=== PATIENT | male | born 1955 | race Hispanic/Latino ===

== ENCOUNTER 2016-06-09 17:31 | Emergency (ER) | payer OTHER ==
[2016-06-09 18:20] LABS: #Eosinphils 0.1 thou/uL (0.0-0.7); #Monocytes 0.5 thou/uL (0.11-0.59); #Neutrophils 2.6 thou/uL (1.40-6.50); %Basophils 0.8 % (0.0-1.0); %Eosinophils 1.9 % (0.0-10.0); %Lymphocytes 24.1 % (21.0-51.0); %Monocytes 11.3 % (0.0-10.0); Hematocrit 32.1 % (42.0-52.0); Mean Platelet Volume 7.3 fL (7.4-10.4); Red Blood Cell (RBC) Count 3.27 mill/uL (4.70-6.10); White Blood Cell (WBC) Count 4.2 thou/uL (4.8-10.8)
[2016-06-09 18:29] LABS: Lactic Acid - Sepsis 1.1 mmol/L (0.5-2.2)
[2016-06-09 18:34] LABS: ALT (SGPT) Less than 6 U/L (0-55); AST (SGOT) 22 U/L (5-34); Alkaline Phosphatase 47 U/L (40-150); Anion Gap 13 mmol/L (10-20); BUN (Urea Nitrogen) 20 mg/dL (8.4-25.7); Bilirubin, Total 0.4 mg/dL (0.2-1.2); Calc. Creatinine Clearance 0 mL/min (70-130); Calcium 8.4 mg/dL (7.8-10.44); Carbon Dioxide 27 mmol/L (22-29); Chloride 106 mmol/L (98-107); Estimated GFR-MDRD Greater than 90; Globulin 2.5 g/dL (2.4-3.5); Protein, Total 6.2 g/dL (6.0-8.3)
[2016-06-09] MEDS ORDERED: Sodium Chloride 0.9% 1,000 ML ONE (18:36)
[2016-06-09 18:47] LABS: Troponin I Less than 0.010 ng/mL (< 0.028)
[2016-06-09] MEDS ORDERED: Adacel (T-DAP) 0.5 ML VIAL ONE (19:16)
[2016-06-09 19:29] LABS: Bilirubin Negative (Negative); Blood, Urine Negative (Negative); Glucose, Urine (Dipstick) 100 mg/dL (Negative); Ketone, Urine 15 mg/dL (Negative); Nitrite Negative (Negative); Protein, Urine (Dipstick) Trace mg/dL (Neg-Trace)
--- NOTE | 2016-06-09 23:58 | PICIS ---
[facility] EMERGENCY RECORD ADMIN MERGE: Call In WedJun 09, 2016 17:08. (17:38 EPIE) TRIAGE (WedJun 09, 2016 17:34 JPAR) TRIAGE NOTES: trip and fall, small 1.5cm above R eye. (WedJun 09, 2016 17:34 JPAR) PATIENT: NAME: Kathy Villagomez, AGE: 60, GENDER: male, : Sat 1955, TIME OF GREET: WedJun 09, 2016 17:32, PREFERRED LANGUAGE: Luxembourgish, ETHNICITY: or , ECODE BILLING MAP: [facility], SSN: [id number], Zip Code: [address], KG WEIGHT: 57.61, PHONE: , , , PERSON ID: [id number], PCP: Charlene HARRIS LUKE. (WedJun 09, 2016 17:34 JPAR) COMPLAINT: FALL. (WedJun 09, 2016 17:34 JPAR) ADMISSION: URGENCY: 4 Non Urgent, ADMISSION SOURCE: Group Home, TRANSPORT: AMBULANCE - [facility], BED: TRIAGE. (WedJun 09, 2016 17:34 JPAR) ASSESSMENT: Assessment: trip and fell into chair at [place], small lac above R eye, Symptoms began 1 hour, Symptoms began 1 hour ago. (17:50 JPAR) PAIN: Patient complains of pain described as, aching, on a scale 0-10 patient rates pain as 3. (17:50 JPAR) SIRS SCORING: Heart Rate 55-109 (0), Temp range 96.8-101.1 (0), respiratory rate 12-24 (0), Mental Status altered: no (0), Infection or Suspected Infection: No. (17:50 JPAR) TRIAGE SCREENING: Patient denies suicidal ideation, Patient denies presence of domestic violence. (17:50 JPAR) PROVIDERS: TRIAGE NURSE: Crow Krishnan RN. (WedJun 09, 2016 17:34 JPAR) VITAL SIGNS: BP 92/57, Pulse 77, Resp 16, Temp 98.6, (Oral), Pain 3, O2 Sat 100, Time 06/09/2016 17:32. (17:32 JPAR) KNOWN ALLERGIES No Known Drug Allergies CURRENT MEDICATIONS Tylenol Ex Str Arthritis Pain: TABLET : Strength - 500 mg : ORAL Patient Dose: 1 tab(s) Oral. (17:37 JPAR) ibuprofen: TABLET : Strength - 400 mg : ORAL Patient Dose: 1 tab(s) Oral. (17:38 JPAR) Mylanta: TABLET, CHEWABLE : Strength - 200 mg-200 mg-20 mg : ORAL Patient Dose: 30 mL Oral. (17:39 JPAR) Milk of Magnesia: SUSPENSION, ORAL (FINAL DOSE FORM) : Strength - 400 mg/5 mL : ORAL Patient Dose: 30 mL Oral. (17:39 JPAR) Haldol: SYRINGE (ML) : Strength - 5 mg/mL : INJECTION &a-1R&a+25V*p+0X*o7298I*c152B*c15G*c2P*p-0X&a-25V&a+1RName: Kathy Villagomez : 1955 M60 MedRec: [id number] AcctNum: [id number] Prepared: WedJun 10, 2016 00:53 by Interface Page 1 of 13 pMD [facility] EMERGENCY RECORD Patient Dose: 6 mg Intramuscular every 6 hours PRN. (17:40 JPAR) LORazepam: TABLET : Strength - 0.5 mg : ORAL Patient Dose: 1 tab(s) Oral every 6 hours PRN. (17:41 JPAR) Cogentin: TABLET : Strength - 0.5 mg : ORAL Patient Dose: 1 tab(s) Oral once a day. (17:41 JPAR) CeleXA: TABLET : Strength - 40 mg : ORAL Patient Dose: 1 tab(s) Oral once a day. (17:42 JPAR) Depakote: TABLET, DELAYED RELEASE (ENTERIC COATED) : Strength - 500 mg : ORAL Patient Dose: 1 tab(s) Oral 2 times a day. (17:42 JPAR) Comtan: TABLET : Strength - 200 mg : ORAL Patient Dose: 1 tab(s) Oral. (17:43 JPAR) L-Dopa: POWDER (GRAM) : MISCELLANEOUS Patient Dose: 100 mg Oral. (17:44 JPAR) levothyroxine: TABLET : Strength - 25 mcg : ORAL Patient Dose: 1 tab(s) Oral once a day. (17:45 JPAR) Protonix: TABLET, DELAYED RELEASE (ENTERIC COATED) : Strength - 40 mg : ORAL Patient Dose: 1 tab(s) Oral once a day. (17:45 JPAR) Exelon: PATCH, TRANSDERMAL 24 HOURS : Strength - 4.6 mg/24 hour : TRANSDERMAL Patient Dose: 1 harlan Transdermal once a day. (17:47 JPAR) VITAL SIGNS VITAL SIGNS: BP: 92/57, Pulse: 77, Resp: 16, Temp: 98.6 (Oral), Pain: 3, O2 sat: 100, Time: 06/09/2016 17:32. (17:32 JPAR) BP: 104/54, Pulse: 92, Resp: 18, Temp: 98.1 (Oral), Pain: 0, O2 sat: 98 on Room Air, Time: 06/09/2016 19:13. (19:13 JPAR) BP: 108/62, Pulse: 84, Resp: 16, Pain: 0, O2 sat: 100 on Room Air, Time: 06/09/2016 19:43. (19:43 MSMI) BP: 115/72, Pulse: 65, Resp: 18, Temp: 98.9 (Oral), Pain: 0, O2 sat: 99 on Room Air, Time: 06/09/2016 20:04. (20:04 MSMI) BP: 116/69, Pulse: 61, Resp: 16, Temp: 97.9 (Oral), Pain: 0, O2 sat: 100 on Room Air, Time: 06/09/2016 22:18. (22:18 MSMI) NURSING ASSESSMENT: CARDIOVASCULAR (19:39 MSMI) CONSTITUTIONAL: Patient complains of S/p Fall, Bedside report given by KRISTIN Maria. KRISTIN Maria reports patient has fallen in the past day twice. Approx. 1.5 cm laceration to right side of forehead repaired with [place]-hernandez. patient is A&Ox3 -baseline unknown - patient has a history of Parkinson's. patient continues to get up out of bed, patient is instructed to stay in bed and use call light for assistance. PAIN: Patient rates pain as 0 out of 10. &a-1R&a+25V*p+0X*p5170K*c152B*c15G*c2P*p-0X&a-25V&a+1RName: Kathy Villagomez : 1955 M60 MedRec: [id number] AcctNum: [id number] Prepared: WedJun 10, 2016 00:53 by Interface Page 2 of 13 D [facility] EMERGENCY RECORD CARDIOVASCULAR: Cardiovascular assessment findings include heart rate normal, Heart rhythm normal sinus, Heart sounds normal, S1, S2, Left radial pulse +3(easily palpated, considered normal), Right radial pulse +3(easily palpated, considered normal), Left dorsalis pedis pulse +3(easily palpated, considered normal), Right dorsalis pedis pulse +3(easily palpated, considered normal), No associated diaphoresis, no associated dyspnea, no associated dizziness, no associated edema, no associated palpitations, no associated paresthesias, no associated weakness, No history of pulmonary embolism, No history of DVT or leg swelling. RESPIRATORY/CHEST: Chest movement symmetrical, no signs of distress, no retractions noted, no cyanosis, no jugular vein distension, no tenderness to palpation, no associated cough noted, Associated with fever, group home reports history of fever, patient is afebrile upon admission to ED., no associated fume exposure. SAFETY: Side rails up, Cart/Stretcher in lowest position, Call light within reach, Hospital ID band on. NURSING ASSESSMENT: SKIN (17:34 JPAR) CONSTITUTIONAL: Patient arrives, via stretcher, via [facility], Unsteady gait, Assistance to cart, Lift to cart, Inability to ambulate, History obtained from, Emergency Medical Services, group home record, Patient appears, restless, Patient cooperative, Patient alert, Oriented to person, place and time, Skin warm, Skin dry, Skin normal in color, Mucous membranes pink, Mucous membranes moist, Patient complains of Fall hit head on chair. PAIN: aching pain. SKIN: Skin assessment findings include skin warm, Skin dry, Skin normal in color. SAFETY: Side rails up, Cart/Stretcher in lowest position, Family at bedside, Call light within reach, Hospital ID band on. NURSING PROCEDURE: COMMUNICATIONS COMMUNICATIONS: residential, contacted at 23:30, Contacted to call report for transfer back to facility, At this time, I have made contact with KRISTIN Lopez. KRISTIN Lopez contacts [facility], states ambulance is in route unable to provide ETA. This nurse obtains [facility] number at this time., Notes: please see nursing notes for additional documentation in regards to communication with group home. (23:33 MSMI) Ambulance service, contacted at 11:36, Name of provider [facility], Person contacted Dispatcher, requested for transfer back to group home, by basic life support transport, Estimated time of arrival 10. (23:38 MSMI) SAFETY: Side rails up, Cart/Stretcher in lowest position, Call light within reach, Hospital ID band on. (23:38 MSMI) NURSING PROCEDURE: DISCHARGE NOTE (23:50 MSMI) DISCHARGE: Patient discharged to home, ambulating without &a-1R&a+25V*p+0X*a3641V*c152B*c15G*c2P*p-0X&a-25V&a+1RName: HernandoKathy : 1955 M60 MedRec: [id number] AcctNum: [id number] Prepared: WedJun 10, 2016 00:53 by Interface Page 3 of 13 D [facility] EMERGENCY RECORD assistance, transported via non-urgent ambulance, accompanied by emergency medical services personnel, Discharge instructions given to patient, Discharge instructions given to EMS staff, Above person(s) verbalized understanding of discharge instructions and follow-up care, Patient treated and evaluated by physician. BELONGINGS: Belongings and valuables with patient at time of discharge include:, Belongings sent home with family member, Valuables sent home with family. SAFETY: Side rails up, Cart/Stretcher in lowest position, Call light within reach, Hospital ID band on, Notes: Report was given to KRISTIN Haro. NURSING PROCEDURE: EKG CHART PATIENT IDENTIFIER: Patient actively involved in identification process, Patient's identity verified by patient stating name, Patient's identity verified by patient stating date, Patient's identity verified by hospital ID bracelet, Patient's identity verified by family member. (18:22 JPAR) EKG: EKG indicated for MD Ordered, 12 lead EKG performed on the left chest, first EKG. (18:22 JPAR) FOLLOW-UP: After procedure, EKG for interpretation given to Dr. Morris. (18:22 JPAR) NOTES: Notes: EKG done by Tasha FOSTER. (19:31 JPAR) SAFETY: Side rails up, Cart/Stretcher in lowest position, Family at bedside, Call light within reach, Hospital ID band on. (18:22 JPAR) NURSING PROCEDURE: IV PATIENT IDENITIFIER: Patient actively involved in identification process, Patient's identity verified by patient stating name, Patient's identity verified by hospital ID bracelet. (18:03 EPIE) IV SITE 1: IV established, to the left forearm, using a 20 gauge catheter, in one attempt, IV site prepped with chloroprep, Saline lock established, Flushed with normal saline (mls): 10, Labs drawn at time of placement, labeled in the presence of the patient and sent to lab. (18:03 EPIE) FOLLOW-UP SITE 1: After procedure, no drainage at IV site, After procedure, no swelling at IV site, After procedure, no redness at IV site. (18:03 EPIE) NOTES: Notes: IV DISCONTINUED WITH CATHETER TIP INTACT. NO BLEEDING, SWELLING, OR DRAINAGE FROM SITE. PRESSURE DRESSING APPLIED. (21:50 [facility]) NURSING PROCEDURE: NURSE NOTES NURSES NOTES: Patient in no apparent distress, Notes: Direct pressure applied with 2X2 to R brow to stop bleeding. (17:34 JPAR) Patient is improving, Patient in no apparent distress, Notes: Report called to KRISTIN Haro at Group Home facility. KRISTIN Haro is making arrangements with [facility] for ride home. (21:02 MSMI) &a-1R&a+25V*p+0X*a8032C*c152B*c15G*c2P*p-0X&a-25V&a+1RName: Kathy Villagomez : 1955 M60 MedRec: [id number] AcctNum: [id number] Prepared: WedJun 10, 2016 00:53 by Interface Page 4 of 13 pMD [facility] EMERGENCY RECORD Notes: [facility] called to follow up on ambulance; nurse claims ambulance is on it's way; unable to provide ETA. (21:46 MSMI) Notes: Estrellita, RN contacted once more d/t delay in ambulance. Estrellita able to provide ETA - states ambulance will arrive in approx. 45 minutes. (22:42 MSMI) NURSING PROCEDURE: URINE COLLECTION (19:14 JPAR) PATIENT IDENTIFIER: Patient actively involved in identification process, Patient's identity verified by patient stating name, Patient's identity verified by patient stating date. URINE COLLECTION MALE: Urine collection indicated for faciliate diagnosis, Urine collected by straight cath, in one attempt, urine albert in color, and clear, no sediment noted, Specimen collected, labeled in the presence of the patient and sent to lab, Specimen obtained for culture labeled in the presence of the patient and sent to lab. SAFETY: Side rails up, Cart/Stretcher in lowest position, Call light within reach, Hospital ID band on. NURSING PROCEDURE: WOUND CARE (17:47 EPIE) PATIENT IDENTIFIER: Patient actively involved in identification process, Patient's identity verified by patient stating name, Patient's identity verified by hospital ID bracelet. TIMEOUT: Physician performing procedure Dr. Arturo HULL, Witnessed by Rosetta FOSTER. WOUND CARE: Wound site: right forehead, Cause of wound: fall, Wound irrigated with 250 mL of normal saline, by Arturo HULL, Wound repaired with skin adhesive, by Arturo HULL, using 1 tube of skin adhesive. ORDER DETAILS Order Name: Cardiac Profile w/CKMB & Troponin - I, Status: Active, Time: 17:51 06/09/2016, User: JUDY, - Ordered for: MD Morris Andrea, - Entered by: MD Morris Andrea - Tue Jun 09, 2016 17:51, - Quantity: 1, Order Name: CATH STRAIGHT ED, Status: Done, Time: 19:13 06/09/2016, User: VINCENT, - Ordered for: MD Morris Andrea, - Entered by: KRISTIN Krishnan Jason - Tue Jun 09, 2016 19:13, - Quantity: 1, Order Name: CBC with Differential, Status: Active, Time: 17:49 06/09/2016, User: JUDY, - Ordered for: MD Morris Andrea, - Entered by: MD Morris Andrea - Tue Jun 09, 2016 17:49, - Quantity: 1, Order Name: Comprehensive Metabolic Panel, Status: Active, Time: 17:49 06/09/2016, User: JUDY, - Ordered for: MD Morris Andrea, &a-1R&a+25V*p+0X*u1785W*c152B*c15G*c2P*p-0X&a-25V&a+1RName: Kathy Villagomez : 1955 M60 MedRec: [id number] AcctNum: [id number] Prepared: WedJun 10, 2016 00:53 by Interface Page 5 of 13 pMD [facility] EMERGENCY RECORD - Entered by: MD Morris Andrea - Tue Jun 09, 2016 17:49, - Quantity: 1, Order Name: EKG 12 Lead in Emergency Room, Status: Active, Time: 17:51 06/09/2016, User: JUDY, - Ordered for: MD Morris Andrea, - Entered by: MD Morris Andrea - Tue Jun 09, 2016 17:51, - Quantity: 1, Order Name: Lactic Acid with repeat, Status: Active, Time: 17:49 06/09/2016, User: JUDY, - Ordered for: MD Morris Andrea, - Entered by: MD Morris Andrea - Tue Jun 09, 2016 17:49, - Quantity: 1, Order Name: Occult Blood, Stool SCREENING, Status: Active, Time: 20:39 06/09/2016, User: JUDY, - Ordered for: MD Morris Andrea, - Entered by: MD Morris Andrea - Tue Jun 09, 2016 20:39, - Quantity: 1, Order Name: SALINE LOCK, Status: Done, Time: 18:04 06/09/2016, User: TANMAY, - Ordered for: MD Morris Andrea, - Entered by: MD Morris Andrea - Tue Jun 09, 2016 17:51, - Quantity: 1, Order Name: Urinalysis w/ Rflx Microscopic, Status: Active, Time: 17:49 06/09/2016, User: JUDY, - Ordered for: MD Morris Andrea, - Entered by: MD Morris Andrea - Tue Jun 09, 2016 17:49, - Quantity: 1, Order Name: Valproic Acid (Depakene), Status: Active, Time: 17:50 06/09/2016, User: JUDY, - Ordered for: MD Morris Andrea, - Entered by: MD Morris Andrea - WedJun 09, 2016 17:50, - Quantity: 1. MEDICATION ADMINISTRATION SUMMARY Drug Name: Adacel(Tdap Adolesn/Adult)(PF), Dose Ordered: 0.5 mg, Route: Intramuscular, Status: Given, Time: 19:22 06/09/2016, Drug Name: sodium chloride 0.9 % intravenous, Dose Ordered: 1000 mL, Route: IV Fluid Infusion, Status: Given, Time: 18:36 06/09/2016, Detailed record available in Medication Service section. MEDICATION SERVICE Adacel(Tdap Adolesn/Adult)(PF): Order: Adacel(Tdap Adolesn/Adult)(PF) (diphth,pertuss(acell),tet vac/preservative free) - Dose: 0.5 mg : Intramuscular Ordered by: Deep Morris MD Entered by: Deep Morris MD WedJun 09, 2016 17:52 , Acknowledged by: Ambika Colindres RN WedJun 09, 2016 19:21 Documented as given by: Ambika Colindres RN WedJun 09, 2016 19:22 Patient, Medication, Dose, Route and Time verified prior to administration. &a-1R&a+25V*p+0X*k8733R*c152B*c15G*c2P*p-0X&a-25V&a+1RName: Kathy Villagomez : 1955 M60 MedRec: [id number] AcctNum: [id number] Prepared: WedJun 10, 2016 00:53 by Interface Page 6 of 13 pMD [facility] EMERGENCY RECORD IM antibiotic, Amount given: 0.5mL, Medication administered to right deltoid, lot number: [id number], expiration: , Patient appears Awake and alert- acceptable, Correct patient, time, route, dose and medication confirmed prior to administration, Patient advised of actions and side-effects prior to administration, Allergies confirmed and medications reviewed prior to administration, Patient in position of comfort, Side rails up, Cart in lowest position, Call light in reach. : Follow Up : Response assessment performed, No signs or symptoms of allergic reaction noted, Site inspection shows, No swelling at administration site, No drainage at administration site, No bleeding at site, No bruising noted at site, Advised not to ambulate without assistance, Patient in position of comfort, Side rails up, Cart in lowest position, Call light in reach, Attending physician aware. (22:18 MSMI) sodium chloride 0.9 % intravenous: Order: sodium chloride 0.9 % intravenous (0.9 % sodium chloride) - Dose: 1000 mL : IV Fluid Infusion Ordered by: Deep Morris MD Entered by: Deep Morris MD WedJun 09, 2016 17:51 Documented as given by: Crow Krishnan RN WedJun 09, 2016 18:36 Patient, Medication, Dose, Route and Time verified prior to administration. IV SITE #1 IV fluids established for hydration, IV SITE #1 into left forearm, IV SITE #1 1st bag hung, amount 1 Liter hung, IV SITE #1 bolus of 1000 ml established, via primary tubing, Awake and alert- acceptable, Connections checked prior to administration, Line traced prior to administration, Catheter placement confirmed via flush prior to administration, IV site without signs or symptoms of infiltration during medication administration, No swelling during administration, No drainage during administration, IV flushed after administration, Correct patient, time, route, dose and medication confirmed prior to administration, Patient advised of actions and side-effects prior to administration, Allergies confirmed and medications reviewed prior to administration, Patient in position of comfort, Side rails up, Cart in lowest position, Family at bedside, Call light in reach. : Follow Up : Response assessment performed, No signs or symptoms of allergic reaction noted, Site inspection shows, No swelling at administration site, No drainage at administration site, No bleeding at site, No bruising noted at site, _IV SITE #1:_, IV fluid infusion discontinued, on WedJun 09, 2016 19:47, Total fluid hydration time IV site 1 1 hour, 15 minutes, ., Total amount infused: 1 liter, IV Line flushed after administration, Advised not to ambulate without assistance, Patient in position of comfort, Side rails up, Cart in lowest position, Call light in reach, Attending physician aware. (19:47 MSMI) HPI FALL (23:44 AGRE) CHIEF COMPLAINT: Patient presents for evaluation of fall. HISTORIAN: History provided by patient, PATIENT SAYS HE WAS WALKING AND TRIPPED AND FELL LANDING OVER &a-1R&a+25V*p+0X*u0930M*c152B*c15G*c2P*p-0X&a-25V&a+1RName: Kathy Villagomez : 1955 M60 MedRec: [id number] AcctNum: [id number] Prepared: WedJun 10, 2016 00:53 by Interface Page 7 of 13 pMD [facility] EMERGENCY RECORD THE BACK OF A CHAIR. NO LOC BUT SUSTAINED A LACERATION TO HIS FACE. DENIES FALK OR ANY NEURO CHANGES. NO SOB, CHEST PAIN, ABDOMINAL PAIN OR OTHER SYMTPOMS. RETIREMENT CONCERNED BECAUSE HE HAS FALLEN SEVERAL TIMES TODAY. PATIENT SAYS THAT IS BECAUSE ON SOME DAYS THEY GIVE HIM SO MUCH MEDICINE THAT IT IS HARD FOR HIM TO WALK AND HE STUMBLES A LOT. SAYS THIS HAPPENS ALL THE TIME. THE RETIREMENT SAID THAT HE HAD A FEVER BUT PATIENT DENIES THIS. LOCATION: Symptoms are localized, most severe to RIGHT FOREHEAD, RIGHT FACE. TIME COURSE: Sudden onset of symptoms, There has been no change in the patient's symptoms over time. SEVERITY: Maximum severity of symptoms mild, Currently symptoms are mild. ASSOCIATED WITH: No associated neck pain, No associated back pain, Associated with laceration(s), No associated blurred vision, No associated headache, No associated loss of consciousness, No associated near syncope, No associated numbness, No associated paresthesias, No associated shortness of breath, No associated syncope, No associated tingling, No associated weakness distal to injury, No associated vomiting, Denies any other complaints. RELIEVED BY: Patient's condition relieved by nothing. ROS (23:48 AGRE) CONSTITUTIONAL: Historian denies chills, denies fever, denies lethargy, denies malaise. EYES: Historian denies eye pain, denies eye redness. ENT: Historian denies rhinorrhea, denies sinus pain, denies sore throat. CARDIOVASCULAR: Historian denies chest pain, denies dyspnea on exertion. RESPIRATORY: Historian denies cough, denies shortness of breath. GI: Historian denies abdominal pain, denies nausea, denies vomiting. MUSCULOSKELETAL: Historian denies back pain, denies neck pain. SKIN: Historian denies skin changes, denies skin lesions. FACIAL WOUNDS. NEUROLOGIC: Historian denies confusion, denies dizziness, denies dysphasia, denies headache, denies mental status changes, denies seizures, denies sensory changes, denies speech changes. PSYCHIATRIC: Negative psychiatric review of systems, Historian denies anxiety. PAST MEDICAL HISTORY MEDICAL HISTORY: Notes: GERD, Osteoarthritis, Parkinsons, Hypothyroidism, constipation. (17:50 JPAR) PSYCHIATRIC HISTORY: Notes: Major Depressive disorder, dementia w/ behavioral disturbance. (17:50 JPAR) SOCIAL HISTORY: Patient denies alcohol use, Patient has no smoking history, Lives in care home care facility. (WedJun 10, 2016 00:17 AGRE) &a-1R&a+25V*p+0X*t4339K*c152B*c15G*c2P*p-0X&a-25V&a+1RName: Kathy Villagomez : 1955 M60 MedRec: [id number] AcctNum: [id number] Prepared: WedJun 10, 2016 00:53 by Interface Page 8 of 13 D [facility] EMERGENCY RECORD PHYSICAL EXAM (WedJun 10, 2016 00:07 AGRE) CONSTITUTIONAL: Vital signs reviewed, Patient afebrile, Blood pressure, hypotensive, Respiratory rate normal, Patient appears non toxic, Patient appears pain free, Patient alert and oriented to person, place and time, NURSES NOTES REVIEWED. HEAD: Head exam included findings of, no Leavitt's sign, No raccoon eyes, Contusion to right frontal, Laceration to right frontal, SMALL HEMATOMA JUST ABOVE THE RIGHT EYEBROW WITH A 1 CM VERTICAL LACERATION, normocephalic. EYES: Eye exam included findings of eyelids normal to inspection, Pupils equally round and reactive to light, Extraocular muscles intact, Conjunctiva normal, Sclera normal, no periorbital ecchymosis, no periorbital edema, no periorbital erythema. ENT: Ear exam normal, tympanic membranes normal, Nose exam included findings of, SMALL ABRASION OVER THE RIGHT NARES AND NASOLABIAL FOLD. NO SEPTAL HEMATOMA OR NOSE BLEED, Pharynx exam normal, Uvula exam normal, Tonsil exam normal, Mouth exam normal. NECK: no tenderness, Abrasions present, no ecchymosis, Neck exam normal, Neck exam included findings of normal range of motion, no meningeal signs, no cervical adenopathy. RESPIRATORY CHEST: Respiratory and chest exam normal, Respiratory exam included findings of no respiratory distress, Breath sounds clear, No wheezing, No rales, No rhonchi, Breath sounds not diminished. CARDIOVASCULAR: Cardiovascular exam included findings of heart rate regular rate and rhythm, Heart sounds normal, normal S1, normal S2, no murmurs, no rub, no gallop. ABDOMEN MALE: Abdominal exam normal, Abdominal exam included findings of abdomen nontender, Bowel sounds normal, Liver normal, Spleen normal, no distension, no mass. BACK: Back exam normal, Back exam included findings of normal inspection, range of motion normal. UPPER EXTREMITY: Upper extremity exam included findings of inspection normal, Range of motion normal. LOWER EXTREMITY: Lower extremity exam included findings of inspection normal, Range of motion normal. NEURO: Neuro exam findings include patient oriented to person, place and time, Melo coma scale 15, Speech normal, Memory normal, Cranial nerves intact, no focal motor deficits, no focal sensory deficits, no cerebellar deficits, no nystagmus, SEVERE SPASTIC MOVEMENTS OF THE EXTREMITIES SECONDARY TO PARKINSON'S DISEASE OTHERWISE NO FOCAL NEURO CHANGES. SKIN: Skin exam included findings of skin warm, dry, and normal in color, SEE INJURIES DESCRIBED ABOVE. LYMPHATIC: Lymphatic exam normal, Lymphatic exam included findings of cervical nodes normal. PSYCHIATRIC: Psychiatric exam normal, Normal affect. LAB INTERPRETATION &a-1R&a+25V*p+0X*r8587A*c152B*c15G*c2P*p-0X&a-25V&a+1RName: Kathy Villagomez : 1955 M60 MedRec: [id number] AcctNum: [id number] Prepared: WedJun 10, 2016 00:53 by Interface Page 9 of 13 D [facility] EMERGENCY RECORD INTERPRETATION: STOOL HEMOCCULT NEGATIVE. (21:00 AGRE) CBC abnormal, White blood cell count decreased, Hemoglobin decreased, Hematocrit decreased, Urinalysis abnormal, positive for ketones, positive for glucose, Lactate normal. (23:52 AGRE) valproic acid wnl. (23:53 AGRE) EVENTS TRANSFER: Triage to Emergency Triage. (WedJun 09, 2016 17:34 JPAR) Emergency Triage to Emergency Room *TR1. (17:45 EPIE) Removed from Emergency Emergency Room *TR1. (23:52 MSMI) EKG INTERPRETATION (23:48 AGRE) 12 LEAD EKG INTERPRETATION: 12 lead EKG interpreted by Emergency Department Physician at time of study, 12 lead EKG shows normal sinus rhythm, Rate (beats per minute): 64, with no ectopics, Conduction with, incomplete right bundle branch block, [place] normal, PROLONGED QT, BASELINE ARTIFACT, NON-SPECIFIC ST CHANGES. O2SAT INTERPRETATION (20:31 AGRE) O2SAT: Continuous pulse oximetry, Oxygen saturation 99%, on room air, Oxygen saturation interpretation: Normal, No intervention required. DOCTOR NOTES (WedJun 10, 2016 00:13 AGRE) TEXT: PATIENT RECEIVED IV HYDRATION IN THE ED AND HIS BLOOD PRESSURE IMPROVED AND REMAINED WNL FOR THE 4 - 5 HOURS HE WAS IN THE ED. HE WAS LOOKING MORE PERKY AND SAID THAT HE NEVER DRINKS WATER AND GETS DEHYDRATED FROM TIME TO TIME. HE REMAINED ALERT AND ORIENTED AND TALKATIVE IN THE ED WITHOUT ANY NEURO CHANGES. HE CONTINUED TO DENY ANY PAINS. HE WAS FOUND TO BE ANEMIC AND THIS WAS DISCUSSED WITH HIM AND HE HAD NO KNOWLEDGE OF ANEMIA. A STOOL HEMOCCULT WAS CHECKED AND IT WAS NEGATIVE. DISCUSSED WITH HIM THE FINDINGS ON EXAM, RESULTS OF HIS ED TEST, NEED FOR OBSERVATION AND FOR ADDITIONAL WORK UP OF THE ANEMIA. HE UNDERSTANDS AND WILL FOLLOW UP WITH HIS PHYSICIAN AT THE RETIREMENT. PATIENT STATUS: Patient has improved since arrival to emergency department. PATIENT PLAN: The patient will be discharged. DATA REVIEWED: Lab data reviewed, Reviewed EKG. LACERATION-SINGLE REPAIR (WedJun 10, 2016 00:18 AGRE) LACERATION REPAIR: Side and/or site verified, Patient identification confirmed, Sterile procedures observed, Verbal consent obtained, Wound irrigated with normal saline, Laceration repair with skin adhesive, to RIGHT LOWER FOREHEAD, total length 1.0 cm, After procedure, wound well approximated, No complications, Tetanus status not up to date, tetanus immunization ordered, Patient tolerated the procedure well. &a-1R&a+25V*p+0X*o2399V*c152B*c15G*c2P*p-0X&a-25V&a+1RName: Kathy Villagomez : 1955 M60 MedRec: [id number] AcctNum: [id number] Prepared: WedJun 10, 2016 00:53 by Interface Page 10 of 13 pMD [facility] EMERGENCY RECORD PROBLEM LIST No recorded problems DIAGNOSIS (20:39 AGRE) FINAL: PRIMARY: HEAD CONTUSION, ADDITIONAL: ANEMIA UNSPECIFIED, FACIAL LACERATION, VOLUME DEPLETION. DISPOSITION PATIENT: Disposition Type: Discharge, Disposition: *Discharge Home, Condition: Improved. (20:31 AGRE) Patient left the department. (23:52 MSMI) INSTRUCTION (20:40 AGRE) DISCHARGE: CLOSED HEAD INJURY WITH WAKEUP ADULT, DERMABOND FACIAL LACERATION, FACIAL CONTUSION, W/ WAKEUP, ANEMIA, TYPE NOT SPECIFIED (ADULT). FOLLOWUP: Charlene HARRIS, [place], Internal Medicine, [address] [place] [id number], . SPECIAL: FOLLOW THE HEAD INJURY INSTRUCTIONS. KEEP THE WOUNDS CLEAN AND DRY. FOLLOW UP WITH YOUR PRIMARY CARE PHYSICIAN TOMORROW FOR RECHECK. SEE A PHYSICIAN SOONER IF WORSENING OR IF NEW SYMPTOMS DEVELOP. PRESCRIPTION No recorded prescriptions IMAGING RETIREMENT RECORDS: Image captured from scanner. (17:35 JPAR) Page 2 added. Image captured from scanner. (17:35 JPAR) Page 3 added. Image captured from scanner. (17:35 JPAR) Page 4 added. Image captured from scanner. (17:35 JPAR) Page 5 added. Image captured from scanner. (17:35 JPAR) Page 6 added. Image captured from scanner. (17:35 JPAR) Page 7 added. Image captured from scanner. (17:35 JPAR) TETANUS CONSENT: Image captured from scanner. (23:47 MSMI) *SUPPLY CHARGE SHEET: Image captured from scanner. (23:47 MSMI) *EKG: Image captured from scanner. (23:47 MSMI) *DISCHARGE INSTRUCTIONS RECEIPT: Image captured from scanner. (23:47 MSMI) FACE SHEET: Image captured from scanner. (23:48 MSMI) PCS FORM: Image captured from scanner. (23:51 MSMI) ADMIN DIGITAL SIGNATURE: MD Morris Andrea. (WedJun 10, 2016 00:39 AGRE) RESULTS (18:36 JPAR) LABORATORY: Comprehensive Metabolic Panel Collection DT: WedJun 09, 2016 18:20, Sodium 142 mmol/L, Range (136-145), Potassium 4.2 mmol/L, Range (3.5-5.1), &a-1R&a+25V*p+0X*u4045Q*c152B*c15G*c2P*p-0X&a-25V&a+1RName: Kathy Villagomez : 1955 M60 MedRec: [id number] AcctNum: [id number] Prepared: WedJun 10, 2016 00:53 by Interface Page 11 of 13 pMD [facility] EMERGENCY RECORD Chloride 106 mmol/L, Range (98-107), Carbon Dioxide 27 mmol/L, Range (22-29), Anion Gap 13 mmol/L, Range (10-20), BUN (Urea Nitrogen) 20 mg/dL, Range (8.4-25.7), Creatinine 0.77 mg/dL, Range (0.7-1.3), Estimated GFR-MDRD Greater than 90 , Reference Range for Estimated GFR: Greater than 90, mL/min/1.73 m2 NOTE: The MDRD equation has not been validated for use, with the elderly (over 70 years of age), women, patients with, serious comorbid condition or persons with extremes of body size, muscle, mass, or nutritional status. , Glucose 95 mg/dL, Range (70-105), Calcium 8.4 mg/dL, Range (7.8-10.44), Bilirubin, Total 0.4 mg/dL, Range (0.2-1.2), Protein, Total 6.2 g/dL, Range (6.0-8.3), NOTE: Plasma values are generally 0.3 to 0.5 g/dL higher than serum values, due to the presence of fibrinogen. , Albumin 3.7 g/dL, Range (3.5-5.0), Globulin 2.5 g/dL, Range (2.4-3.5), Alb/Glob Ratio 1.5 g/dL, Range (1.2-2.2), Alkaline Phosphatase 47 U/L, Range (40-150), AST (SGOT) 22 U/L, Range (5-34), ALT (SGPT) Less than 6 U/L, Range (0-55). CBC with Differential Collection DT: WedJun 09, 2016 18:20, *White Blood Cell (WBC) Count 4.2 - L thou/uL, Range (4.8-10.8), *Red Blood Cell (RBC) Count 3.27 - L mill/uL, Range (4.70-6.10), *Hemoglobin 10.8 - L g/dL, Range (14.0-18.0), *Hematocrit 32.1 - L %, Range (42.0-52.0), *Mean Corpuscular Volume 98.2 - H fl, Range (80.0-94.0), *Mean Corpuscular Hemoglobin 33.1 - H pg, Range (27.0-31.0), Mean Corpuscular HGB CONC 33.7 g/dL, Range (32.0-36.0), RBC Distribution Width 12.1 %, Range (11.5-14.5), Platelet Count 136 thou/uL, Range (130-400), *Mean Platelet Volume 7.3 - L fL, Range (7.4-10.4), %Neutrophils 61.9 %, Range (42.0-75.0), %Lymphocytes 24.1 %, Range (21.0-51.0), *%Monocytes 11.3 - H %, Range (0.0-10.0), %Eosinophils 1.9 %, Range (0.0-10.0), %Basophils 0.8 %, Range (0.0-1.0), #Neutrophils 2.6 thou/uL, Range (1.40-6.50), *#Lymphocytes 1.0 - L thou/uL, Range (1.20-3.40), #Monocytes 0.5 thou/uL, Range (0.11-0.59), #Eosinphils 0.1 thou/uL, Range (0.0-0.7), #Basophils 0.0 thou/uL, Range (0.0-0.2). Lactic Acid for Sepsis Collection DT: WedJun 09, 2016 18:20, Lactic Acid - Sepsis 1.1 mmol/L, Range (0.5-2.2). &a-1R&a+25V*p+0X*x2286S*c152B*c15G*c2P*p-0X&a-25V&a+1RName: Kathy Villagomez : 1955 M60 MedRec: [id number] AcctNum: [id number] Prepared: WedJun 10, 2016 00:53 by Interface Page 12 of 13 pMD [facility] EMERGENCY RECORD Owens: JUDY=MD Arturo, Deep DONATO=KRISTIN Babcock, Shira KAUR=KRISTIN Krishnan, Crow GUARDADO=KRISTIN Car, Kalani DSOUZAI=KRISTIN Colindres, Ambika &a-1R&a+25V*p+0X*f4042P*c152B*c15G*c2P*p-0X&a-25V&a+1RName: Kathy Villagomez : 1955 M60 MedRec: [id number] AcctNum: [id number] Prepared: WedJun 10, 2016 00:53 by Interface Page 13 of 13 pMD MTDD
== END 2016-06-09 23:44 ==
LOC: NAV ERS 17:31
DX: S01.01XA Laceration without foreign body of scalp, initial encounter (principal); S01.111A Laceration without foreign body of right eyelid and periocular area, initial encounter; S10.91XA Abrasion of unspecified part of neck, initial encounter; D64.9 Anemia, unspecified; E86.9 Volume depletion, unspecified; K21.9 Gastro-esophageal reflux disease without esophagitis; E03.9 Hypothyroidism, unspecified; G20 Parkinson's disease; F02.81 Dementia in other diseases classified elsewhere, unspecified severity, with behavioral disturbance; F32.9 Major depressive disorder, single episode, unspecified; Z79.899 Other long term (current) drug therapy; W01.0XXA Fall on same level from slipping, tripping and stumbling without subsequent striking against object, initial encounter
CPT/HCPCS: 12011; 51701; 80053; 80164; 81003; 82270; 82553; 83605; 84484; 85025; 90471; 90715; 93005; 96360; J7050